=== PATIENT | male | born 1985 | race Caucasian/White ===

== ENCOUNTER 2017-06-14 09:11 | Emergency (ER) | payer MEDICARE, MEDICAID ==
[~2017-06-14 09:11] MED LIST: BACT2OIN TOPICAL; HYDR2.5O TOPICAL
[2017-06-14 09:14] VITALS: BP 157/78; PULSE 86; RESP 16; TEMP 100.4; O2SAT 97
[2017-06-14] MEDS ORDERED: LISI10TA3 PO (09:35)
--- NOTE | 2017-06-14 09:50 | PD ---
HPI Chief Complaint: Cold / Flu Symptoms Time Seen by Provider: 09:42 Travel History International Travel<30 days: No Contact w/Intl Traveler<30days: No Traveled to known affect area: No History of Present Illness HPI 32yo M presented to the ED with "flu-like symptoms." Per his caregiver, he spiked a fever of 102F two days ago, developed a sore throat, congestion and cough. She states that he is [place] [employer], so he may have been exposed to sick contacts there. He did not receive a flu shot this year. Pt has a significant medical history of Down Syndrome, HTN, asthma and GABRIELE. Both the pt and caregiver deny nausea, vomiting, diarrhea, SOB or chest pain. Pt admits to body aches, stomach "gurgling," earaches, couch, sore throat, decreased appetite and fevers. Majority of the HPI obtained from his caregiver. 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) Developmental Delay: Yes (DOWN SYNDROME) Diabetes: No Diminished Hearing: No GERD: Yes Hepatitis: No Hiatal Hernia: No Hypertension: Yes Neurologic: Yes Respiratory: Yes (ASTHMA) Immunizations Current: Yes Pneumonia: Yes Sleep Apnea: Yes (APNEA MACHINE) Thyroid Disease: No Past Surgical History Abdominal Surgery: No Cardiac Surgery: Yes (3 OPEN HEART SURGERIES) Ear Surgery: Yes (BILAT EAR TUBES) Endocrine Surgery: No Eye Surgery: No Genitourinary Surgery: Yes (TESTICULAR DESCENTION SURGERY BABY) Neurologic Surgery: No Oral Surgery: No Pacemaker: No Thoracic Surgery: No Valve Replacement: Yes (REPAIR OF "HOLE "IN HEART) Social History Alcohol Use: No Tobacco Use: No Substance Use: No Allergies-Medications (Allergen,Severity, Reaction): Coded Allergies: No Known Allergies (Unverified Adverse Reaction, Unknown, 06/14/17) Reported Meds & Prescriptions Reported Meds & Active Scripts Active Reported Lisinopril 10 Mg Tab 10 Mg PO DAILY Review of Systems Except as stated in HPI: all other systems reviewed are Neg General / Constitutional: Positive: Fever HENT: Positive: Sore Throat, Rhinorrhea, Congestion, Earache Respiratory: Positive: Cough Physical Exam Narrative GENERAL: 32yo M with Down Syndrome who is obese. Alert and oriented x3. SKIN: Warm and dry. HEAD: Atraumatic. Normocephalic. EYES: Pupils equal and round. No scleral icterus. No injection or drainage. ENT: Rhinorrhea with clear mucus, no bleeding. Mucous membranes are moist. Mild pharyngeal erythema, without exudates or vesicles. Tympanic membranes intact and nonerythematous. NECK: Trachea midline. No JVD. Supple. CARDIOVASCULAR: Regular rate and rhythm. RESPIRATORY: No accessory muscle use. Clear to auscultation. Breath sounds equal bilaterally. GASTROINTESTINAL: Abdomen soft, non-tender, nondistended. Hepatic and splenic margins not palpable. MUSCULOSKELETAL: Extremities without clubbing, cyanosis, or edema. No obvious deformities. NEUROLOGICAL: Awake and alert. No obvious cranial nerve deficits. Motor grossly within normal limits. Normal speech. PSYCHIATRIC: Appropriate mood and affect; insight and judgment normal. Data Data Last Documented VS Vital Signs Date Time Temp Pulse Resp B/P (MAP) Pulse Ox O2 Delivery O2 Flow Rate FiO2 06/14/17 09:14 100.4 86 16 157/78 (104) 97 Orders Orders Influenzae A/B Antigen (06/14/17 09:34) Group A Rapid Strep Screen (06/14/17 09:42) Ed Discharge Order (06/14/17 09:59) MDM Medical Decision Making Medical Screen Exam Complete: Yes Emergency Medical Condition: Yes Medical Record Reviewed: Yes Differential Diagnosis Viral syndrome versus strep pharyngitis versus influenza Narrative Course Flu test is positive. At this point, my plan would be to treat him for influenza. Follow-up with primary care doctor as needed. Return for any worsening in symptoms. The plan was discussed with mom and she states understanding. Diagnosis Primary Impression: Influenza Med/Other Pt SpecificInfo: Prescription(s) given Scripts Ondansetron Odt (Zofran Odt) 4 Mg Tab 4 MG SL Q6HR Y for Nausea/Vomiting, #7 TAB 0 Refills Prov: Michelle Blancas MD 06/14/17 Ibuprofen (Ibuprofen) 600 Mg Tab 600 MG PO Q6H Y for Pain/Inflammation, #20 TAB 0 Refills Prov: Michelle Blancas MD 06/14/17 Oseltamivir (Tamiflu) 75 Mg Cap 75 MG PO BID for Mgmt Viral Infection for 5 Days, #10 CAP 0 Refills Prov: Soonthtatyanathai,Rewadee MD 06/14/17 Disposition: 01 DISCHARGE HOME Condition: Stable Michelle Blancas MD Jun 14, 2017 09:50
[2017-06-14] MEDS ORDERED: OSEL75 PO (10:02)
[2017-06-14] MEDS ORDERED: ZOFR4TAB3 SL (10:02)
[2017-06-14] MEDS ORDERED: IBUP-232 PO (10:02)
[2017-06-17] MEDS ORDERED: OSEL60SU PO (13:07)
== END 2017-06-14 10:29 | disposition home or self-care (01) ==
LOC: PHED 09:11
DX: J10.89 Influenza due to other identified influenza virus with other manifestations (principal); J45.909 Unspecified asthma, uncomplicated; I10 Essential (primary) hypertension; K21.9 Gastro-esophageal reflux disease without esophagitis; G47.33 Obstructive sleep apnea (adult) (pediatric); Q90.9 Down syndrome, unspecified
CPT/HCPCS: 87081; 87804; 87880; 99284

== ENCOUNTER 2017-07-19 16:51 | Emergency (ER) | payer MEDICARE, MEDICAID ==
[~2017-07-19] VITALS: Ht 154.9 cm; Wt 125.0 kg
[~2017-07-19 16:51] MED LIST changes: -BACT2OIN TOPICAL; -HYDR2.5O TOPICAL; +IBUP-232 PO; +LISI10TA3 PO; +OSEL60SU PO; +ZOFR4TAB3 SL
[2017-07-19 16:56] VITALS: BP 181/73; PULSE 69; RESP 18; TEMP 98.4; O2SAT 96
--- NOTE | 2017-07-19 17:11 | PD ---
HPI Chief Complaint: Skin Problem Time Seen by Provider: 17:08 Travel History International Travel<30 days: No Contact w/Intl Traveler<30days: No Traveled to known affect area: No History of Present Illness HPI 32-year-old male with Down syndrome came to the emergency room with history of lateral in her thigh redness and pain since past 3 days. When his father saw it he thought it was sunburned and was applying aloe but symptoms have worsened. He is having trouble walking because of the pain. Patient looked uncomfortable. Blood pressure was elevated. No history of fever or chills. PFSH Past Medical History Narrative Medical List of his past medical, surgical, social and family history is reviewed from the nursing note. Hx Anticoagulant Therapy: No Asthma: Yes Cardiovascular Problems: Yes (HTN, 3 OPEN HEART SX'S) Developmental Delay: Yes (DOWN SYNDROME) Diabetes: No Diminished Hearing: No GERD: Yes Hepatitis: No Hiatal Hernia: No Hypertension: Yes Neurologic: Yes Respiratory: Yes (ASTHMA) Immunizations Current: Yes Pneumonia: Yes Sleep Apnea: Yes (APNEA MACHINE) Thyroid Disease: No Past Surgical History Abdominal Surgery: No Cardiac Surgery: Yes (3 OPEN HEART SURGERIES) Ear Surgery: Yes (BILAT EAR TUBES) Endocrine Surgery: No Eye Surgery: No Genitourinary Surgery: Yes (TESTICULAR DESCENTION SURGERY BABY) Neurologic Surgery: No Oral Surgery: No Pacemaker: No Thoracic Surgery: No Valve Replacement: Yes (REPAIR OF "HOLE "IN HEART) Social History Alcohol Use: No Tobacco Use: No Substance Use: No Allergies-Medications (Allergen,Severity, Reaction): Coded Allergies: No Known Allergies (Unverified Adverse Reaction, Unknown, 07/19/17) Comments No known drug allergies. Reported Meds & Prescriptions Reported Meds & Active Scripts Active Clindamycin Liq 75 Mg/5 Ml Soln 150 Mg PO Q6H 10 Days Nystatin Topical (Nystatin) 100,000 unit/gm Cream 1 Applic TOPICAL BID 10 Days Reported Lisinopril 10 Mg Tab 10 Mg PO DAILY Narrative Medication List of his home medications reviewed from the nursing note. Review of Systems Except as stated in HPI: all other systems reviewed are Neg Skin: Positive Rash Physical Exam Narrative GENERAL: Awake, alert, moderate distress, Down syndrome SKIN: Focused skin assessment warm/dry. Bilateral inner thighs symmetrical maculopapular erythematous rash which is tender to touch. This is an extensive area the entire part where both the thighs touch each other. HEAD: Atraumatic. Normocephalic. EYES: Pupils equal and round. No scleral icterus. No injection or drainage. ENT: No nasal bleeding or discharge. Mucous membranes pink and moist. NECK: Trachea midline. No JVD. CARDIOVASCULAR: Regular rate and rhythm. No murmur appreciated. RESPIRATORY: No accessory muscle use. Clear to auscultation. Breath sounds equal bilaterally. GASTROINTESTINAL: Abdomen soft, non-tender, nondistended. Hepatic and splenic margins not palpable. MUSCULOSKELETAL: No obvious deformities. No clubbing. No cyanosis. No edema. NEUROLOGICAL: Awake and alert. No obvious cranial nerve deficits. Motor grossly within normal limits. Normal speech. PSYCHIATRIC: Appropriate mood and affect; insight and judgment normal. Data Data Last Documented VS Orders Orders Basic Metabolic Panel (Bmp) (07/19/17 17:16) Complete Blood Count With Diff (07/19/17 17:16) Blood Culture (07/19/17 17:16) Ketorolac Inj (Toradol Inj) (07/19/17 17:30) Cefazolin Inj (Ancef Inj) (07/19/17 17:30) Cefazolin 2 Gm Premix (Ancef 2 Gm Premix (07/19/17 17:45) Nystatin Cream (Mycostatin Cream) (07/19/17 18:00) Ed Discharge Order (07/19/17 18:14) Labs Laboratory Tests Test 07/19/17 17:30 White Blood Count 13.3 TH/MM3 Red Blood Count 4.47 MIL/MM3 Hemoglobin 14.0 GM/DL Hematocrit 41.8 % Mean Corpuscular Volume 93.5 FL Mean Corpuscular Hemoglobin 31.3 PG Mean Corpuscular Hemoglobin Concent 33.5 % Red Cell Distribution Width 14.1 % Platelet Count 316 TH/MM3 Mean Platelet Volume 8.6 FL Neutrophils (%) (Auto) 73.4 % Lymphocytes (%) (Auto) 19.2 % Monocytes (%) (Auto) 4.2 % Eosinophils (%) (Auto) 2.4 % Basophils (%) (Auto) 0.8 % Neutrophils # (Auto) 9.7 TH/MM3 Lymphocytes # (Auto) 2.6 TH/MM3 Monocytes # (Auto) 0.6 TH/MM3 Eosinophils # (Auto) 0.3 TH/MM3 Basophils # (Auto) 0.1 TH/MM3 CBC Comment DIFF FINAL Differential Comment Blood Urea Nitrogen 15 MG/DL Creatinine 1.30 MG/DL Random Glucose 195 MG/DL Calcium Level 8.7 MG/DL Sodium Level 137 MEQ/L Potassium Level 4.3 MEQ/L Chloride Level 102 MEQ/L Carbon Dioxide Level 28.1 MEQ/L Anion Gap 7 MEQ/L Estimat Glomerular Filtration Rate 65 ML/MIN MDM Medical Decision Making Medical Screen Exam Complete: Yes Emergency Medical Condition: Yes Medical Record Reviewed: Yes Differential Diagnosis Cellulitis, fungal infection Narrative Course 6:16 PM blood test results are back. Patient has leukocytosis and hyperglycemia. I've given him one dose of IV Ancef and Toradol for pain. Patient will be discharged home with instructions and prescription. The hyperglycemia is new onset. I've asked him and the family to follow up with primary care. Procedures EKG Prior to Arrival: No Diagnosis Primary Impression: Yeast infection of the skin Additional Impressions: Cellulitis Qualified Codes: L03.119 - Cellulitis of unspecified part of limb Hyperglycemia Referrals: Primary Care Physician Additional Instructions: Take the medication as per the prescription direction. Please follow-up with his primary care regarding this new onset hyperglycemia that was discovered in the emergency room. His blood glucose was 195. Primary care may have to do a glucose tolerance test as well as hemoglobin A1c. Keep the area clean and dry. Do not wear tight clothing's. Med/Other Pt SpecificInfo: Prescription(s) given Scripts Clindamycin Liq (Clindamycin Liq) 75 Mg/5 Ml Soln 150 MG PO Q6H for Infection for 10 Days, #400 ML 0 Refills Prov: Cedric Posada MD 07/19/17 Nystatin Topical (Nystatin Topical) 100,000 unit/gm Cream 1 APPLIC TOPICAL BID for Infection for 10 Days, #15 GM 0 Refills Prov: Cedric Posada MD 07/19/17 Disposition: 01 DISCHARGE HOME Condition: Stable Cedric Posada MD Jul 19, 2017 17:11
[2017-07-19] MEDS ORDERED: KETOROLAC TROMETHAMINE 30 MG/ML (IVP) VIAL IVP ONE (17:30)
[2017-07-19] MEDS ORDERED: ceFAZolin INJ 1,000 MG VIAL IM ONE (17:30)
[2017-07-19] MEDS ORDERED: ceFAZolin 2 GM PREMIX 50 ML IV ONE (17:45)
[2017-07-19 17:52] LABS: AUTOMATED NEUTROPHIL # 9.7 TH/MM3 (1.8-7.7); BASOPHIL # 0.1 TH/MM3 (0-0.2); BASOPHIL % 0.8 % (0.0-2.0); EOSINOPHIL # 0.3 TH/MM3 (0-0.4); EOSINOPHIL % 2.4 % (0.0-4.0); HEMATOCRIT 41.8 % (39.0-51.0); LYMPH % 19.2 % (9.0-44.0); LYMPHOCYTE # 2.6 TH/MM3 (1.0-4.8); MEAN CELL VOLUME 93.5 FL (80.0-100.0); MEAN CORPUSCULAR HEMOGLOBIN 31.3 PG (27.0-34.0); MEAN CORPUSCULAR HGB CONC 33.5 % (32.0-36.0); MEAN PLATELET VOLUME 8.6 FL (7.0-11.0); MONO % 4.2 % (0.0-8.0); MONOCYTE # 0.6 TH/MM3 (0-0.9); NEUT % 73.4 % (16.0-70.0); PLATELET COUNT 316 TH/MM3 (150-450); RED BLOOD COUNT 4.47 MIL/MM3 (4.50-5.90); RED CELL DISTRIBUTION WIDTH 14.1 % (11.6-17.2); WHITE BLOOD COUNT 13.3 TH/MM3 (4.0-11.0)
[2017-07-19 17:55] LABS: CALCIUM 8.7 MG/DL (8.5-10.1)
[2017-07-19 17:56] LABS: BICARBONATE 28.1 MEQ/L (21.0-32.0)
[2017-07-19 17:59] LABS: CREATININE 1.3 MG/DL (0.60-1.30)
[2017-07-19 18:00] VITALS: BP 143/80; PULSE 76; RESP 16; O2SAT 98
[2017-07-19] MEDS ORDERED: NYSTATIN 100,000 UNIT/GM CREAM 15 GM TOPICAL ONE (18:00)
[2017-07-19] MEDS ORDERED: NYST15T TOPICAL (18:13)
[2017-07-19] MEDS ORDERED: CEPH-460 PO (18:13)
[2017-07-19] MEDS ORDERED: CLIN75SO PO (19:30)
[2017-07-19 19:40] VITALS: RESP 18
[2017-07-19 19:42] VITALS: BP 111/57
== END 2017-07-19 19:44 | disposition home or self-care (01) ==
LOC: PHED 16:51
DX: L03.116 Cellulitis of left lower limb (principal); L03.115 Cellulitis of right lower limb; B37.2 Candidiasis of skin and nail; D72.829 Elevated white blood cell count, unspecified; R73.9 Hyperglycemia, unspecified; Q90.9 Down syndrome, unspecified; J45.909 Unspecified asthma, uncomplicated; I10 Essential (primary) hypertension; K21.9 Gastro-esophageal reflux disease without esophagitis
CPT/HCPCS: 80048; 85025; 87040; 96365; 96375; 99284; J0690; J1885

== ENCOUNTER 2017-08-10 14:42 | Emergency (ER) | payer MEDICARE, MEDICAID ==
[~2017-08-10] VITALS: Ht 157.5 cm; Wt 124.0 kg
[~2017-08-10 14:42] MED LIST changes: +CLIN75SO PO; -IBUP-232 PO; +NYST15T TOPICAL; -OSEL60SU PO; -ZOFR4TAB3 SL
[2017-08-10 14:49] VITALS: BP 150/65; PULSE 88; RESP 19; TEMP 98; O2SAT 97
[2017-08-10] MEDS ORDERED: AMOX400S3 PO (15:31)
[2017-08-10] MEDS ORDERED: PRED15UDC PO (15:31)
[2017-08-10] MEDS ORDERED: ALBU0.08 NEB (15:35)
--- NOTE | 2017-08-10 15:35 | PD ---
HPI Chief Complaint: Cold / Flu Symptoms Time Seen by Provider: 15:22 Travel History International Travel<30 days: No Contact w/Intl Traveler<30days: No Traveled to known affect area: No History of Present Illness HPI 32-year-old male that presents to the ED for evaluation of cold-like symptoms. Patient has had cold-like symptoms for the past 4 days. Sore throat and congestion noted. Per mom patient has a history of asthma. Patient has a significant history of Down syndrome and has had multiple complications secondary to his genetic disease. He's had 3 open heart surgeries. He is using inhalers with some relief. Per patient he has a lot of sore throat and congestion. His been using inhalers with some relief of the cough. He denies any shortness of breath or chest pain at this time. Mom has been given patient multiple [id number] remedies with some relief. Symptoms continue. Mother is concerned about possibility of bacterial infection requiring antibiotics. No other medical problems at this time. No falls or injuries. No recent travel. PFSH Past Medical History Hx Anticoagulant Therapy: No Asthma: Yes Cardiovascular Problems: Yes Developmental Delay: Yes (DOWN SYNDROME) Diabetes: No Diminished Hearing: No GERD: Yes Hepatitis: No Hiatal Hernia: No Hypertension: Yes Neurologic: Yes Respiratory: Yes (ASTHMA) Immunizations Current: Yes Pneumonia: Yes Sleep Apnea: Yes (APNEA MACHINE) Thyroid Disease: No Tetanus Vaccination: < 5 Years Influenza Vaccination: No Past Surgical History Abdominal Surgery: No Cardiac Surgery: Yes (3 OPEN HEART SURGERIES) Ear Surgery: Yes (BILAT EAR TUBES) Endocrine Surgery: No Eye Surgery: No Genitourinary Surgery: Yes (TESTICULAR DESCENTION SURGERY BABY) Joint Replacement: No Neurologic Surgery: No Oral Surgery: No Pacemaker: No Thoracic Surgery: Yes (3 open heart surgeries) Valve Replacement: Yes (REPAIR OF "HOLE "IN HEART) Social History Alcohol Use: No Tobacco Use: No Substance Use: No Allergies-Medications (Allergen,Severity, Reaction): Coded Allergies: No Known Allergies (Unverified Adverse Reaction, Unknown, 08/10/17) Reported Meds & Prescriptions Reported Meds & Active Scripts Active Prednisolone Liq (Prednisolone) 15 Mg/5 Ml Soln 15 Mg PO BID 5 Days Amoxicillin Liq (Amoxicillin) 400 Mg/5 Ml Susp 500 Mg PO TID 10 Days Reported Lisinopril 10 Mg Tab 10 Mg PO DAILY Review of Systems Except as stated in HPI: all other systems reviewed are Neg Physical Exam Narrative GENERAL: Well-nourished, well-developed patient in no apparent distress. SKIN: Warm and dry. HEAD: Atraumatic. Normocephalic. EYES: Pupils equal and round reactive to light and accommodation. No scleral icterus. No injection or drainage. ENT: No nasal bleeding or discharge. Mucous membranes pink and moist. TMs are clear with no sign of infection or perforation. No mastoid tenderness. Ear canals are intact bilaterally. No lymphadenopathy. Nostril mucosa is red and moist with clear mucus noted. No sinus tenderness to palpation noted. Tonsils are not enlarged or swollen. No ulvua Deviation. Tongue is midline. NECK: Trachea midline. No JVD. No meningeal signs noted CARDIOVASCULAR: Regular rate and rhythm. RESPIRATORY: No accessory muscle use. Clear to auscultation. Breath sounds equal bilaterally. GASTROINTESTINAL: Abdomen soft, non-tender, nondistended. Hepatic and splenic margins not palpable. MUSCULOSKELETAL: Extremities without clubbing, cyanosis, or edema. No obvious deformities. NEUROLOGICAL: Awake and alert. No obvious cranial nerve deficits. Motor grossly within normal limits. Five out of 5 muscle strength in the arms and legs. Normal speech. PSYCHIATRIC: Appropriate mood and affect; insight and judgment normal. Data Data Last Documented VS Vital Signs Date Time Temp Pulse Resp B/P (MAP) Pulse Ox O2 Delivery O2 Flow Rate FiO2 08/10/17 14:49 98.0 88 19 150/65 (93) 97 MDM Medical Decision Making Medical Screen Exam Complete: Yes Emergency Medical Condition: Yes Medical Record Reviewed: Yes Differential Diagnosis Sinusitis versus pharyngitis versus tonsillitis Narrative Course 32-year-old male that presents to the ED for evaluation of cold-like symptoms. Patient was properly examined and was found to have signs and symptoms consistent appears to be tonsillitis. We'll treat with amoxicillin, prednisolone, albuterol nebulizer refill. Told to continue taking over-the- counter remedies as needed. Follow with PCP. See ED worsening symptoms. Diagnosis Primary Impression: Acute tonsillitis Qualified Codes: J03.90 - Acute tonsillitis, unspecified Patient Instructions: General Instructions Additional Instructions: Motrin and Tylenol for pain and fever. You can use [id number] antihistamine as well as well as Mucinex as needed for runny nose and congestion. Cough drops for cough as needed. Drink plenty of fluids. Follow-up with PCP. See ED for worsening symptoms. Med/Other Pt SpecificInfo: Prescription(s) given Scripts Prednisolone Liq (Prednisolone Liq) 15 Mg/5 Ml Soln 15 MG PO BID for 5 Days, #50 ML 0 Refills Prov: Juan Reynolds MD 08/10/17 Amoxicillin Liq (Amoxicillin Liq) 400 Mg/5 Ml Susp 500 MG PO TID for Infection for 10 Days, ML 0 Refills Prov: Juan Reynolds MD 08/10/17 Disposition: 01 DISCHARGE HOME Condition: Stable Higinio Larsen Aug 10, 2017 15:35
== END 2017-08-10 15:42 | disposition home or self-care (01) ==
LOC: PHEFT 14:42
DX: J03.90 Acute tonsillitis, unspecified (principal); Q90.9 Down syndrome, unspecified; J45.909 Unspecified asthma, uncomplicated; I10 Essential (primary) hypertension; Z98.890 Other specified postprocedural states
CPT/HCPCS: 99283

== ENCOUNTER 2017-08-28 23:07 | Emergency (ER) | payer MEDICARE, MEDICAID ==
[~2017-08-28] VITALS: Ht 157.5 cm; Wt 124.3 kg
[~2017-08-28 23:07] MED LIST changes: +ALBU0.08 NEB; +AMOX400S3 PO; -CLIN75SO PO; -NYST15T TOPICAL; +PRED15UDC PO
[2017-08-28 23:09] VITALS: BP 135/77; PULSE 82; RESP 18; TEMP 98.5; O2SAT 95
[2017-08-28] MEDS ORDERED: ERYTOIN10 LEFT EYE (23:41)
--- NOTE | 2017-08-28 23:41 | PD ---
HPI Chief Complaint: Eye Problems/Injury Time Seen by Provider: 23:18 Travel History International Travel<30 days: No Contact w/Intl Traveler<30days: No Traveled to known affect area: No History of Present Illness HPI 32-year-old man, Down syndrome, presents with copious eye drainage crusting and purulence. Some intermittent injection to the eyes. Symptoms started today. History Past Medical History Narrative Medical Down syndrome Social History Alcohol Use: No Tobacco Use: No Allergies-Medications (Allergen,Severity, Reaction): Coded Allergies: No Known Allergies (Unverified Adverse Reaction, Unknown, 08/28/17) Reported Meds & Prescriptions Reported Meds & Active Scripts Active Erythromycin Opth Oint 5 Mg/Gm Oint 1 Applic LEFT EYE QID Albuterol Neb (Albuterol Sulfate) 2.5 Mg/3 Ml Neb 2.5 Mg NEB Q4HR NEB PRN Prednisolone Liq (Prednisolone) 15 Mg/5 Ml Soln 15 Mg PO BID 5 Days Amoxicillin Liq (Amoxicillin) 400 Mg/5 Ml Susp 500 Mg PO TID 10 Days Reported Lisinopril 10 Mg Tab 10 Mg PO DAILY Review of Systems Except as stated in HPI: all other systems reviewed are Neg Physical Exam Narrative General: Well-appearing 32-year-old man. HEENT: Down syndrome faces. Both eyes are a little bit edematous, significant amount of purulent crusting and drainage from the eyes. There is little bit of injection to both eyes. Floor seen exam was performed without any areas of abnormal uptake. CARDIOVASCULAR: Warm and well perfused. RESPIRATORY: Normal rate and effort. NEUROLOGICAL: Awake and alert. No gross deficits. Data Data Last Documented VS Vital Signs Date Time Temp Pulse Resp B/P (MAP) Pulse Ox O2 Delivery O2 Flow Rate FiO2 08/28/17 23:58 98.3 85 16 132/80 (97) 100 Orders Orders Erythromycin 0.5% Opth Oint (Ilotycin 0. (08/28/17 23:45) Ed Discharge Order (08/28/17 23:41) MDM Medical Decision Making Medical Screen Exam Complete: Yes Emergency Medical Condition: Yes Differential Diagnosis Conjunctivitis, chemical irritation, other Narrative Course Medical decision making 32-year-old man presents emerged department with bilateral purulent conjunctivitis. No evidence of abrasion. Recommend ophthalmic antibiotics. Diagnosis Primary Impression: Conjunctivitis Additional Instructions: Use erythromycin 4 times daily. Follow-up with his primary doctor if not completely well 1 week. Med/Other Pt SpecificInfo: Prescription(s) given Scripts Erythromycin Opth Oint (Erythromycin Opth Oint) 5 Mg/Gm Oint 1 APPLIC LEFT EYE QID for Infection, #1 TUBE 0 Refills Prov: Odin James MD 08/28/17 Disposition: 01 DISCHARGE HOME Condition: Stable Odin James MD Aug 28, 2017 23:41
[2017-08-28] MEDS ORDERED: ERYTHROMYCIN 0.5% OPTH OINT 3.5 GM TUBO EACH EYE ONE (23:45)
[2017-08-28 23:58] VITALS: BP 132/80; TEMP 98.3
== END 2017-08-28 23:59 | disposition home or self-care (01) ==
LOC: PHED 23:07
DX: H10.9 Unspecified conjunctivitis (principal); Q90.9 Down syndrome, unspecified
CPT/HCPCS: 99283